=== PATIENT | female | born 1985 | race Caucasian/White ===

== ENCOUNTER 2021-07-13 22:56 | Emergency (ER) | payer SELFPAY ==
[2021-07-13 23:25] VITALS: BP 134/86; PULSE 90; RESP 18; TEMP 37; O2SAT 100
--- NOTE | 2021-07-14 01:31 | ED.GENADULT ---
HPI - General Adult General Chief complaint: Animal Bite Stated complaint: left arm and leg dog bite Time Seen by Provider: 07/14/21 01:08 History of Present Illness HPI narrative: Patient 36-year-old female presents the emergency department with chief complaint of dog bite. Patient states that her dog accidentally bit her today in the left forearm and also the left lower extremity. Patient states the dog's shots are up-to-date reports he is unsure of her last tetanus shot reports that the dog's teeth were intact patient denies fever or chills denies any other injuries. Related Data Allergies Allergy/AdvReac Type Severity Reaction Status Date / Time No Known Allergies Allergy Unverified 07/13/21 23:43 Review of Systems Review of Systems: A 10 system review of systems was completed on the patient and is negative except for what is stated in the HPI. Nursing and ancillary documentation was reviewed. Exam Narrative: GENERAL: Well-appearing, well-nourished, and in no acute distress. HEAD: Normocephalic, atraumatic. EYES: PERRLA and EOMI. ENT: Nares clear, no rhinorrhea or epistaxis. Mucous membranes moist. NECK: Supple. CHEST: Clear to auscultation. No respiratory distress. HEART: Regular rate and rhythm. No murmur heard. Normal peripheral pulses. ABDOMEN: Soft, nontender, nondistended, normal active bowel sounds. EXTREMITIES: Normal range of motion. No edema. SKIN: Warm, dry, no rash. There are several small lacerations present in the left forearm and the left lower extremity. The patient has full range of motion there is no signs of foreign body. NEURO: No focal deficits. Alert and oriented x3. PSYCH: Normal mood and affect. Course Course Emergency Course: The patient's tetanus status was updated in the emergency department. Patient was given a dose of Augmentin the wounds were irrigated out by the nurse and Steri-Strips were applied. The wounds were not close due to the risk of infection. Vital Signs Vital signs: Vital Signs Temperature 37.0 C 07/13/21 23:25 Pulse Rate 90 07/13/21 23:25 Respiratory Rate 18 07/13/21 23:25 Blood Pressure 134/86 07/13/21 23:25 Pulse Oximetry 100 07/13/21 23:25 Temperature 37.0 C 07/13/21 23:25 Pulse Rate 90 07/13/21 23:25 Respiratory Rate 18 07/13/21 23:25 Blood Pressure 134/86 07/13/21 23:25 Pulse Oximetry 100 07/13/21 23:25 Medical Decision Making Vital Signs Vital Signs: Vital Signs Temperature 37.0 C 07/13/21 23:25 Pulse Rate 90 07/13/21 23:25 Respiratory Rate 18 07/13/21 23:25 Blood Pressure 134/86 07/13/21 23:25 Pulse Oximetry 100 07/13/21 23:25 Temperature 37.0 C 07/13/21 23:25 Pulse Rate 90 07/13/21 23:25 Respiratory Rate 18 07/13/21 23:25 Blood Pressure 134/86 07/13/21 23:25 Pulse Oximetry 100 07/13/21 23:25 Discharge Plan Discharge Clinical Impression: Dog bite Qualifiers: Encounter type: initial encounter Qualified Code(s): W54.0XXA - Bitten by dog, initial encounter Patient Disposition: Home, Self-Care Condition: Stable Instructions: Antibiotic Form, Animal Bite (ED), Steristrips (ED), Laceration Without Closure (ED) Prescriptions: New amoxicillin-pot clavulanate [Augmentin] 875-125 mg tablet 1 tablet PO Q12H 10 Days Qty: 20 RF: 0 Follow-up/Referrals: PHYSICIAN,SURGICAL ASST [Primary Care Provider] - Shamar Roldan MD [Physician] - Time of Disposition: 01:35
[2021-07-14] MEDS: TETANUS,DIPHTHERIA,AC PERTUSSIS ADULT (0.5 ML) BOOSTRIX IM (02:11)
[2021-07-14] MEDS: AMOXICILLIN/CLAVULANATE K 875-125 MG TAB 1 TABLET PO (02:14)
[2021-07-14] MEDS: HYDROcodone/acetaminophen (*CRX) 5-325 MG TABLET 1 TAB PO (02:14)
[2021-07-14 02:30] VITALS: BP 139/89; PULSE 79; RESP 18; O2SAT 99
== END 2021-07-14 02:31 | disposition home or self-care (01) ==
PROVIDERS: Emergency Provider Emergency Medicine
DX: S51.852A Open bite of left forearm, initial encounter (principal); S81.852A Open bite, left lower leg, initial encounter; W54.0XXA Bitten by dog, initial encounter; Z23 Encounter for immunization
CPT/HCPCS: 90471; 90715; 99283; A9270